=== PATIENT | female | born 1995 | race Two or more races ===

== ENCOUNTER 2020-08-10 15:06 | Outpatient (CLI) | payer OTHER ==
[~2020-08-10] VITALS: Ht 154.9 cm; Wt 80.4 kg
[2020-08-10 16:00] VITALS: BP 126/60
[2020-08-10 16:06] LABS: MICROSCOPIC INDICATED
[2020-08-10] MEDS ORDERED: LEVO75TA PO (16:29)
[2020-08-10] MEDS ORDERED: VALA500T4 PO (16:30)
== END 2020-08-10 16:39 | disposition home or self-care (01) ==
LOC: LDOP 15:06
PROVIDERS: ATTEND Obstetrics & Gynecology
DX: O42.92 Full-term premature rupture of membranes, unspecified as to length of time between rupture and onset of labor (principal); Z3A.38 38 weeks gestation of pregnancy
CPT/HCPCS: 59025; 81001; 84112; 87086